=== PATIENT | female | born 1935 | race Caucasian/White ===

== ENCOUNTER 2016-09-23 12:49 | Emergency (ER) | payer MEDICARE, BC ==
--- NOTE | 2016-09-23 14:27 | RAD ---
HISTORY: Shortness of breath, CHF COMPARISONS: September 13, 2014 VIEWS:1: Single frontal portable view of the chest at 2:05 PM FINDINGS: LINES AND TUBES: None. CARDIOMEDIASTINAL SILHOUETTE: The cardiomediastinal silhouette is stable. PLEURA: The costophrenic angles are sharp. No pleural abnormalities are noted. LUNG PARENCHYMA: There is stable mild reticular markings ABDOMEN: The upper abdomen is clear. There is no subphrenic gas. BONES AND SOFT TISSUES: Degenerative changes are noted along the spine. IMPRESSION: STABLE MILD CHRONIC INTERSTITIAL CHANGES.
[2016-09-23 14:29] LABS: Hematocrit 35 % (35-47); Mean Corpuscular HGB Conc 35 g/dl (31-36); Mean Corpuscular Hemoglobin 37 pg (27-31); Mean Platelet Volume 9 um3 (7.4-10.4); Red Blood Count 3.25 10^6/ul (4.0-5.4); Red Cell Distribution Width 16 % (10.5-15)
[2016-09-23 14:30] LABS: Comments Flag Yes
[2016-09-23 14:31] LABS: Add Diff/Slide Review? Slide Review Added; Mean Corpuscular Volume 107 fL (80-97)
[2016-09-23 14:46] LABS: ALT 23 U/L (7-52); AST 47 U/L (13-39); Albumin 2.9 g/dL (3.2-5.2); Alkaline Phosphatase 163 U/L (34-104); BUN/Creatinine Ratio 20.7 (8-20); Blood Urea Nitrogen 36 mg/dL (6-24); CO2 Carbon Dioxide 29 mmol/L (22-32); Calcium 9.6 mg/dL (8.6-10.3); Chloride 100 mmol/L (101-111); Creatine Kinase 55 U/L (10-223); EGFR African American 36.1 (>60); EGFR Non-African American 28.1 (>60); Globulin 4.1 g/dL (2-4); Glucose 258 mg/dL (70-100); Sodium 129 mmol/L (133-145)
[2016-09-23 14:47] LABS: Troponin I 0.01 ng/mL (<0.04)
[2016-09-23 16:40] VITALS: BP 119/63
--- NOTE | 2016-09-23 20:24 | ED ---
Mckenna Stovall Alok, scribed for Nikko Tubbs MD on 09/23/16 at 1416 . Altered Mental Status - HPI Summary HPI Summary: 80F presents to the ED sent here from her PCP for low ammonia levels. Pt was seen by PCP 2 days ago, and presents to the ED today with weakness, and a confused mental state according to her . Pt takes Laxulose but states she has not been taking them regularly since she was not aware that the medication is for her ammonia as well as BMs. Pt uses home O2 at night. Pt denies anti-coagulant use. PMHx includes h/o cirrhosis, leaky aortic valve, and DM. Pt notes recent travel to [place] 2 weeks ago. - History Of Current Complaint Chief Complaint: EDWeakness Stated Complaint: LOW BLOOD PRESSURE Time Seen by Provider: 09/23/16 13:33 Hx Obtained From: Patient, Family/Rides Attendant Onset/Duration: Still Present Timing: Constant Severity Initially: Moderate Severity Currently: Moderate Character: Confusion Aggravating Factor(s): Nothing Alleviating Factor(s): Nothing Associated Signs And Symptoms: Positive: Weakness - Allergies/Home Medications Allergies/Adverse Reactions: Allergies Allergy/AdvReac Type Severity Reaction Status Date / Time No Known Allergies Allergy Verified 12/10/12 14:13 Home Medications: Home Medications Allopurinol TAB* [Zyloprim 300 MG TAB*] 300 mg PO DAILY 09/23/16 [History Confirmed 09/23/16] Cholecalciferol TAB* [Vitamin D TAB*] 2,000 units PO DAILY 09/23/16 [History Confirmed 09/23/16] Furosemide TAB* [Lasix TAB*] 40 mg PO DAILY 09/23/16 [History Confirmed 09/23/16 ] Insulin Aspart Protamine & Asp [Novolog Mix 70/30 (70-30) 100 Unit/ml] 30 units SUBCUT BID 09/23/16 [History Confirmed 09/23/16] Lactulose* 30 ml PO DAILY 09/23/16 [History Confirmed 09/23/16] Levothyroxine TAB* [Synthroid TAB*] 100 mcg PO DAILY 09/23/16 [History Confirmed 09/23/16] Magnesium Oxide [Magnesium] 500 mg PO DAILY 09/23/16 [History Confirmed 09/23/16 ] Misc Natural Products [Lutein 20] 1 cap PO DAILY 09/23/16 [History Confirmed ] [place]-3 Fatty Acids (Nf) [Fish Oil (NF)] 1,000 mg PO DAILY 09/23/16 [History Confirmed 09/23/16] Oxybutynin XL TAB* [Ditropan XL TAB*] 5 mg PO DAILY 09/23/16 [History Confirmed 09/23/16] Potassium Chlor TAB* [Klor Con ER TAB*] 10 meq PO DAILY 09/23/16 [History Confirmed 09/23/16] Propranolol LA CAP* [Inderal LA CAP*] 80 mg PO DAILY 09/23/16 [History Confirmed 09/23/16] RiFAXimin* [Xifaxan*] 550 mg PO BID 09/23/16 [History Confirmed 09/23/16] Spironolactone (NF) [Spironolactone 50 MG (NF)] 50 mg PO DAILY 09/23/16 [ History Confirmed 09/23/16] PMH/Surg Hx/FS Hx/Imm Hx Endocrine/Hematology History: Reports: Hx Diabetes, Other Endocrine/ Hematological Disorders - h/o cirrhosis Musculoskeletal History: Denies: Hx Osteoporosis - Cancer History Hx Chemotherapy: No Hx Radiation Therapy: No Infectious Disease History: No Infectious Disease History: Denies: Traveled Outside the [place] in Last 30 Days - Family History Known Family History: Positive: Other - No - Breast CA - Social History Occupation: Retired Lives: With Family Review of Systems Negative: Fever Positive: Weakness All Other Systems Reviewed And Are Negative: Yes Physical Exam - Summary Physical Exam Summary: The patient is well-nourished in no acute distress and in no acute pain. The skin is warm and dry with jaundice. HEENT: The head is normocephalic and atraumatic. The pupils are equal and reactive. The conjunctivae is icteric and without drainage. Nares are patent and without drainage. Mouth reveals dry mucous membranes and the throat is without erythema and exudate. Patient is jaundice under her tongue. The external ears are intact. The ear canals are patent and without drainage. The tympanic membranes are intact. Neck is supple with full range of motion and non-tender. There are no carotid bruits. There is no neck vein distension. Respiratory: Chest is non-tender. Lungs are clear to auscultation and breath sounds are symmetrical and equal. Cardiovascular: Hear is regular rate and rhythm. Holosystolic murmur. Right ICS. There is a pretibial edema at the lower extremities and pulses are symmetrical and equal. Abdomen: The abdomen is soft and non-tender with ascites. There are normal bowel sounds heard in all four quadrants and there is no organomegaly palpated. Musculoskeletal: There is no back pain noted. Extremities are non-tender with full range of motion. There is good capillary refill. There is pretibial edema at the lower extremities. Neurological: Patient is alert and oriented to person, place and time. The patient has symmetrical motor strength in all four extremities. Cranial nerves are grossly intact. Deep tendon reflexes are symmetrical and equal in all four extremities. Psychiatric: The patient appears alert and answers questions appropriately but is confused according to her . Triage Information Reviewed: Yes Vital Signs On Initial Exam: Initial Vitals Temp Pulse Resp BP Pulse Ox 97 F 57 17 118/58 97 09/23/16 12:51 09/23/16 12:51 09/23/16 12:51 09/23/16 12:51 09/23/16 12:51 Vital Signs Reviewed: Yes Diagnostics - Vital Signs Vital Signs Temp Pulse Resp BP Pulse Ox 09/23/16 13:13 97 F 57 16 124/54 96 09/23/16 13:06 56 96 09/23/16 13:04 124/54 09/23/16 12:51 97 F 57 17 118/58 97 - Laboratory Lab Results: Lab Results 09/23/16 09/23/16 09/23/16 Range/Units 14:15 14:15 14:15 WBC 8.0 (3.5-10.8) 10^3/ul RBC 3.25 L (4.0-5.4) 10^6/ul Hgb 12.0 (12.0-16.0) g/dl Hct 35 (35-47) % MCV 107 H (80-97) fL MCH 37 H (27-31) pg MCHC 35 (31-36) g/dl RDW 16 H (10.5-15) % Plt Count 99 L (150-450) 10^3/ul MPV 9 (7.4-10.4) um3 Neut % (Auto) 60.0 (38-83) % Lymph % (Auto) 21.5 L (25-47) % Sherman % (Auto) 12.4 H (1-9) % Eos % (Auto) 5.1 (0-6) % Baso % (Auto) 1.0 (0-2) % Absolute Neuts (auto) 4.8 (1.5-7.7) 10^3/ul Absolute Lymphs (auto) 1.7 (1.0-4.8) 10^3/ul Absolute Monos (auto) 1.0 H (0-0.8) 10^3/ul Absolute Eos (auto) 0.4 (0-0.6) 10^3/ul Absolute Basos (auto) 0.1 (0-0.2) 10^3/ul Absolute Nucleated RBC 0.01 10^3/ul Nucleated RBC % 0.1 INR (Anticoag Therapy) 1.14 H (0.89-1.11) Sodium 129 L (133-145) mmol/L Potassium 4.0 (3.5-5.0) mmol/L Chloride 100 L (101-111) mmol/L Carbon Dioxide 29 (22-32) mmol/L BUN 36 H (6-24) mg/dL Creatinine 1.74 H (0.51-0.95) mg/dL Est GFR ( Amer) 36.1 (>60) Est GFR (Non-Af Amer) 28.1 (>60) BUN/Creatinine Ratio 20.7 H (8-20) Glucose 258 H (70-100) mg/dL Lactic Acid (0.5-2.0) mmol/L Calcium 9.6 (8.6-10.3) mg/dL Magnesium 2.0 (1.9-2.7) mg/dL Total Bilirubin 3.10 H (0.2-1.0) mg/dL AST 47 H (13-39) U/L ALT 23 (7-52) U/L Alkaline Phosphatase 163 H (34-104) U/L Ammonia (16-53) mol/L Total Creatine Kinase 55 (10-223) U/L Troponin I 0.01 (<0.04) ng/mL Total Protein 7.0 (6.4-8.9) g/dL Albumin 2.9 L (3.2-5.2) g/dL Globulin 4.1 H (2-4) g/dL Albumin/Globulin Ratio 0.7 L (1-3) 09/23/16 09/23/16 Range/Units 14:15 14:15 WBC (3.5-10.8) 10^3/ul RBC (4.0-5.4) 10^6/ul Hgb (12.0-16.0) g/dl Hct (35-47) % MCV (80-97) fL MCH (27-31) pg MCHC (31-36) g/dl RDW (10.5-15) % Plt Count (150-450) 10^3/ul MPV (7.4-10.4) um3 Neut % (Auto) (38-83) % Lymph % (Auto) (25-47) % Sherman % (Auto) (1-9) % Eos % (Auto) (0-6) % Baso % (Auto) (0-2) % Absolute Neuts (auto) (1.5-7.7) 10^3/ul Absolute Lymphs (auto) (1.0-4.8) 10^3/ul Absolute Monos (auto) (0-0.8) 10^3/ul Absolute Eos (auto) (0-0.6) 10^3/ul Absolute Basos (auto) (0-0.2) 10^3/ul Absolute Nucleated RBC 10^3/ul Nucleated RBC % INR (Anticoag Therapy) (0.89-1.11) Sodium (133-145) mmol/L Potassium (3.5-5.0) mmol/L Chloride (101-111) mmol/L Carbon Dioxide (22-32) mmol/L BUN (6-24) mg/dL Creatinine (0.51-0.95) mg/dL Est GFR ( Amer) (>60) Est GFR (Non-Af Amer) (>60) BUN/Creatinine Ratio (8-20) Glucose (70-100) mg/dL Lactic Acid 1.4 (0.5-2.0) mmol/L Calcium (8.6-10.3) mg/dL Magnesium (1.9-2.7) mg/dL Total Bilirubin (0.2-1.0) mg/dL AST (13-39) U/L ALT (7-52) U/L Alkaline Phosphatase (34-104) U/L Ammonia 68 H (16-53) mol/L Total Creatine Kinase (10-223) U/L Troponin I (<0.04) ng/mL Total Protein (6.4-8.9) g/dL Albumin (3.2-5.2) g/dL Globulin (2-4) g/dL Albumin/Globulin Ratio (1-3) Result Diagrams: 09/23/16 14:15 09/23/16 14:15 Lab Statement: Any lab studies that have been ordered have been reviewed, and results considered in the medical decision making process. - Radiology CXR Xray Interpretation: Positive (See Comments) - IMPRESSION: STABLE MILD CHRONIC INTERSTITIAL CHANGES. Radiology Interpretation Completed By: Radiologist - EKG 1303 Cardiac Rate: Bradycardia - 55 bpm EKG Rhythm: Sinus Bradycardia EKG Interpretation: Poor R-wave progression. Left axis deviation. No STEMI. Re-Evaluation - Re-Evaluation First Eval Re-Evaluation Time: 15:59 Change: Unchanged Comment: Discussed patient lab results with patient and her . Offered patient admit to [facility] but she refused. Advised patient to take an extra dose of laxulose when she gets home and another before bed, then take tomorrow at regular dosage. Altered Mental Statu Course/Dx - Course Course Of Treatment: Offered patient admit to [facility] but she refused and wishes strongly not to be admited to [facility]. - Diagnoses Discharge Diagnoses: Dehydration, Hepatic encephalopathy, Renal failure, Cirrhosis of liver not due to alcohol Discharge - Discharge Plan Condition: Stable Disposition: HOME Patient Education Materials: Dehydration (ED) Referrals: Dena Merino MD [Primary Care Provider] - Additional Instructions: Please follow up with your primary care provider. The documentation as recorded by the Mckenna ybarra Alok accurately reflects the service I personally performed and the decisions made by me, Nikko Tubbs MD.
== END 2016-09-23 16:44 | disposition home or self-care (01) ==
LOC: ED 12:49
DX: K72.90 Hepatic failure, unspecified without coma (principal); K74.60 Unspecified cirrhosis of liver; N19 Unspecified kidney failure; R53.1 Weakness; E86.0 Dehydration
CPT/HCPCS: 36415; 71010; 80053; 82140; 82550; 83605; 83735; 84484; 85025; 85610; 93005; 99282